=== PATIENT | female | born 1955 | race Asian ===

== ENCOUNTER 2017-01-14 18:57 | Emergency (ER) | payer OTHER ==
[~2017-01-14] VITALS: Ht 165.1 cm; Wt 69.4 kg
[2017-01-14] MEDS ORDERED: Acetaminophen 500mg (ES) tab PO ONE (19:30)
[2017-01-14 19:46] VITALS: BP 124/76
[2017-01-14] MEDS ORDERED: TYLENOL EXTRA500 MG ORAL (19:58)
[2017-01-14 20:06] VITALS: BP 124/76
--- NOTE | 2017-01-15 11:16 | Diagnostic Imaging Report ---
Indication: Dyspnea Comparison: None A single view chest radiograph was obtained. Findings: The heart is mildly enlarged the lungs are clear. Bones are osteopenic. There are fusion rods projected over the lower thoracic and lumbar spine. Impression: No acute cardiopulmonary disease
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
== END 2017-01-14 20:06 | disposition home or self-care (01) ==
LOC: EDBD 18:57 → EMR 19:26
DX: S20.212A Contusion of left front wall of thorax, initial encounter (principal); V43.52XA Car driver injured in collision with other type car in traffic accident, initial encounter; Y93.9 Activity, unspecified; Y92.410 Unspecified street and highway as the place of occurrence of the external cause; I51.7 Cardiomegaly; M85.80 Other specified disorders of bone density and structure, unspecified site
CPT/HCPCS: 71010; 99283